=== PATIENT | female | born 1960 | race Caucasian/White ===

== ENCOUNTER 2020-12-16 14:55 | Outpatient (AMBR) | payer MEDICAID, SELFPAY ==
--- NOTE | 2020-12-07 17:18 | PT.OIERPT ---
PT OP Initial Eval Patient Information Visit Reasons: fx of right upper humerus Medical Diagnosis: s/p R proximal humerus ORIF Treatment Dx #1: R shoulder and UE pain Start of Care: 12/07/20 Date of Onset: 11/01/20 Initial Assessment Subjective Pt is 60 yr old female s/o R proximal humerus FX with ORIF 5 weeks ago. Pt reports high pain level and swelling in the hand that limits hand gripping and movement. She has not been able to move the R shoulder due to pain and she ran out of pain meds. She has started sleeping in a bed vs recliner 2 days ago. Pt is crying during Hx. PMH: HTN Imaging: in EMR Pt goal: to be able to use the R shoulder again without pain and swelling Objective R shoulder AROM: PROM: FF: 20 deg 75 deg Abd: 20 deg 60 deg Erot: unable to neutral Strength NT but estimated to be 3-/5 in all planes R hand park attendant: 50% of full fist Sensation: diminished to light touch of dorsum of hand digits 4-5 Assessment Pt presents with high tissue irritability of R shoulder s/p ORIF. ROM is limited in capsular pattern especially ERot. Pain and adaptive shortening/adhesions have limited ROM and active movement. Pt encouraged to move the R UE actively. Pt requires skilled therapy in order to decrease pain and improve ROM, strength and reach and she has fair rehab potential. Short Term and Cardiac Nurse Goals 1. Ind with HEP 2. Improved AROM of R shoulder to 135 deg FF, 125 deg abduction and 80 deg ER 3. Improved HBB ROM to L5 4. Pt will reach OH x10 with <=4/10 pain Treatment Plan 1. Manual therapy 2. Therex 3. Modalities as indicated, moist heat pack, ice, electrical stimulation, Frequency and Duration 2x a week for 8 weeks Certification Dates: 12/07/20 to 03/05/21 Office Procedures PT Procedures PT Date of Service: 12/07/20 OP PT Eval Mod Complex 30 minutes: Yes
--- NOTE | 2020-12-09 18:51 | PT.ODAYNRPT ---
PT Outpatient Daily Note Date of Service: 12/09/20 OP Daily Note Visit Reasons: fx of right upper humerus Outpatient Physical Therapy Treatment Date: 12/09/20 Subjective: She has been moving the R UE and using the R hand and feels like she has more ROM since eval Objective: See F/S for therex MT: PPM into R shoulder Erot, abduction and FF x7' to pt tolerance TENS and MHP during wand therex x7' Assessment: Improved A/PROM today with moderate tissue irritability but less than evaluation. Plan: Continue per POC Length of Time (minutes) of Treatment: 30 Minutes Office Procedures PT Procedures PT Date of Service: 12/07/20 OP PT Eval Mod Complex 30 minutes: Yes PT Procedures PT Date of Service: 12/09/20 MCL Initial 30 minutes: Yes
--- NOTE | 2020-12-16 18:54 | PT.ODAYNRPT ---
PT Outpatient Daily Note Date of Service: 12/16/20 OP Daily Note Visit Reasons: fx of right upper humerus Outpatient Physical Therapy Treatment Date: 12/16/20 Subjective: She has been moving the R UE and using the R hand and feels like she has more ROM but the swelling is still there. She can put the R hand behind the head with difficulty. Objective: See F/S for therex TENS and MHP during wand therex x7' Assessment: Improved A/PROM today with less tissue irritability then last visit. She is lacking full elbow extension and encouraged to stretch with ankle weight at home. Plan: Continue per POC Length of Time (minutes) of Treatment: 30 Minutes Office Procedures PT Procedures PT Date of Service: 12/16/20 MCL Initial 30 minutes: Yes PT Procedures PT Date of Service: 12/07/20 OP PT Eval Mod Complex 30 minutes: Yes PT Procedures PT Date of Service: 12/09/20 MCL Initial 30 minutes: Yes
== END 2020-12-26 23:59 | disposition home or self-care (01) ==
PROVIDERS: PCP Orthopaedic Surgery; Referring Provider Orthopaedic Surgery; Visit Provider Orthopaedic Surgery
DX: S42.291D Other displaced fracture of upper end of right humerus, subsequent encounter for fracture with routine healing (principal); M25.511 Pain in right shoulder; I10 Essential (primary) hypertension; X58.XXXD Exposure to other specified factors, subsequent encounter; Z98.890 Other specified postprocedural states
CPT/HCPCS: 97162